=== PATIENT | female | born 1945 | race Caucasian/White ===

== ENCOUNTER → 2016-09-29 | Outpatient (CLI) | payer OTHER, MEDICARE ==
--- NOTE | 2016-09-29 08:36 | US ---
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 Findings: Gallbladder: Multiple subcentimeter gallbladder polyps adherent to the wall without shadowing calculi , with greater than 10 polyps noted. No shadowing calculi, wall thickening, or pericholecystic fluid. Common bile duct is 5 mm in diameter which is normal. Liver: Diffusely increased in echogenicity without definite focal lesions and measures 18 cm in lengt h. Renal: Right kidney measures 11 x 5 x 4 cm without hydronephrosis. Cortical scarring lower pole right kidney. Pancreas: Homogeneous without peripancreatic fluid. Aorta: Atherosclerotic aorta without aneurysm. Impression: 1. Multiple nonshadowing gallbladder polyps for which follow up imaging in 6 months is recommended. 2. No cholelithiasis or biliary ductal dilation. 3. Hepatomegaly and hepatic steatosis without definite focal hepatic lesions or ascites. 4. Cortical scarring lower pole right kidney without hydronephrosis. 5. Atherosclerotic aorta without aneurysm.
== END ==
LOC: FIMAGING 07:22
PROVIDERS: ATTEND Internal Medicine
DX: B18.2 Chronic viral hepatitis C (principal); K82.4 Cholesterolosis of gallbladder; I70.0 Atherosclerosis of aorta

== ENCOUNTER → 2017-05-25 | Outpatient (CLI) | payer OTHER, MEDICARE | LOC: FIMAGING 07:18 | PROVIDERS: ATTEND Internal Medicine | DX: K82.4 Cholesterolosis of gallbladder (principal) ==

== ENCOUNTER → 2017-12-03 | Outpatient (CLI) | payer OTHER, MEDICARE | LOC: FIMAGING 10:57 | PROVIDERS: ATTEND Orthopaedic Surgery | DX: Z01.818 Encounter for other preprocedural examination (principal); M17.12 Unilateral primary osteoarthritis, left knee ==

== ENCOUNTER → 2017-12-08 | Outpatient (CLI) | payer OTHER, MEDICARE ==
[~2017-12-08] MED LIST: IOPAMIDOL (ISOVUE-300) 100 ML BTL ONE
== END ==
LOC: CIMAGING 14:03
PROVIDERS: ATTEND Orthopaedic Surgery
DX: R19.04 Left lower quadrant abdominal swelling, mass and lump (principal); M51.36 Other intervertebral disc degeneration, lumbar region; M51.37 Other intervertebral disc degeneration, lumbosacral region; I70.0 Atherosclerosis of aorta; I77.89 Other specified disorders of arteries and arterioles
CPT/HCPCS: 72193; Q9967; 82565-PO

== ENCOUNTER 2017-12-16 06:09 | Observation (INO) | payer OTHER, MEDICARE ==
[~2017-12-16 06:09] MED LIST changes: +BUPI/epINEPH/KETOROLAC IU ONE; -IOPAMIDOL (ISOVUE-300) 100 ML BTL ONE; +ROPIVACAINE 0.2% 80 MG, EPINEPHrine 0.2 MG, KETOROLAC TROMETHAMINE 30 MG in SYRINGE 0 ML IU ONE; +TRANEXAMIC ACID 3,000 MG in NS (SYRINGE) 50 ML IRR ONE
[2017-12-16] MEDS ORDERED: FAMOTIDINE 20 MG TAB PO ONE (06:39)
[2017-12-16] MEDS ORDERED: ACETAMINOPHEN 325 MG TAB PO ONE (06:39)
[2017-12-16] MEDS ORDERED: DEXAMETHASONE 4 MG/ML VIAL IVP ONE (06:39)
[2017-12-16] MEDS ORDERED: ceFAZolin 2 GM/SWFI 2 GM/20 ML SYR IVP ONE (06:39)
[2017-12-16] MEDS ORDERED: LIDOCAINE 1% 2 ML INJ ID PRN (06:40)
[2017-12-16] MEDS ORDERED: LR 1,000 ML IV ONE (06:40)
[2017-12-16] MEDS ORDERED: TRANEXAMIC ACID 3,000 MG/50 ML BAG IRR ONE (07:02)
--- NOTE | 2017-12-16 07:11 | PDHPUP ---
History & Physical Update H&P update statement: This history and physical update is based on an assessment of the patient which was completed after admission or registration (within 24 hours), but prior to the surgery/procedure. H&P update: H&P reviewed & patient examined, no change in patient's condition since H&P completed
[2017-12-16] MEDS ORDERED: MIDAZOLAM 2 MG/2 ML VIAL IVP ONE (07:19)
[2017-12-16] MEDS ORDERED: LR 500 ML IV PRN (07:21)
[2017-12-16] MEDS ORDERED: PROMETHAZINE HCL 25 MG/ML INJ IVP PRN ×2 (07:21→09:30)
[2017-12-16] MEDS ORDERED: fentaNYL 100 MCG/2 ML INJ IVP PRN (07:21)
[2017-12-16] MEDS ORDERED: NALOXONE HCL 0.4 MG/ML INJ IVP PRN (07:21)
[2017-12-16] MEDS ORDERED: ACETAMINOPHEN 500 MG TAB PO PRN (07:21)
[2017-12-16] MEDS ORDERED: ONDANSETRON 4 MG/2 ML VIAL IVP PRN ×2 (07:21→09:30)
[2017-12-16] MEDS ORDERED: oxyCODONE IR 5 MG TAB PO PRN (07:21)
--- NOTE | 2017-12-16 07:21 | PDANEPAE ---
ANE Past Medical History - Cardiovascular History Hx Hypertension: No Hx Arrhythmias: No Hx Chest Pain: No Hx Coronary Artery / Peripheral Vascular Disease: No Hx CHF / Valvular Disease: No Hx Palpitations: No - Pulmonary History Hx COPD: No Hx Asthma/Reactive Airway Disease: No Hx Recent Upper Respiratory Infection: No Hx Oxygen in Use at Home: No Hx Sleep Apnea: Yes Sleep Apnea Screening Result - Last Documented: Positive Pulmonary History Comment: SHIVAM uses C-PAP - Neurologic History Hx Cerebrovascular Accident: No Hx Seizures: No Hx Dementia: No - Endocrine History Hx Diabetes: No - Renal History Hx Renal Disorders: No - Liver History Hx Hepatic Disorders: No - Neurological & Psychiatric Hx Hx Neurological and Psychiatric Disorders: No - Cancer History Hx Cancer: No - Congenital Disorder History Hx Congenital Disorders: No - GI History Hx Gastrointestinal Disorders: No - Other Health History Other Health History: none - Chronic Pain History Chronic Pain: Yes (right knee) - Surgical History Prior Surgeries: X PLANTED BREAST IMPLANTS. BILAT CATARACT SX ANE Review of Systems Review of Systems: - Exercise capacity METS (RN): 4 METS ANE Patient History - Allergies Allergies/Adverse Reactions: No Known Allergies Allergy (Verified 12/04/17 16:07) - Home Medications Home Medications: Ascorbic Acid [Vitamin C 500 mg (*)] 500 mg PO DAILY 12/01/17 [Last Taken Unknown] Cholecalciferol Vit D3 [Vitamin D3 (*)] 1,000 units PO DAILY 12/01/17 [Last Taken Unknown] Herbals/Supplements -Info Only 1 ea PO DAILY 12/01/17 [Last Taken Unknown] Levothyroxine [Synthroid 50 mcg (*)] 50 mcg PO DAILY06 12/01/17 [Last Taken Unknown] Pregabalin [Lyrica 150mg (*)] 150 mg PO BID 12/01/17 [Last Taken Unknown] SUMAtriptan [Imitrex 50 MG (*)] 100 mg PO DAILY PRN 12/01/17 [Last Taken Unknown ] Zolpidem Tartrate [Ambien 5MG (*)] 5 mg PO HS PRN 12/01/17 [Last Taken Unknown] celeCOXIB [Celebrex (*)] 200 mg PO BID PRN 12/01/17 [Last Taken Unknown] traMADol [Ultram 50 mg (*)] 50 mg PO DAILY PRN 12/01/17 [Last Taken Unknown] - Anes Hx Anes Hx: no prior problems - Smoking Hx Smoking Status: Never smoked - Family Anes Hx Family Hx Anesthesia Complications: NONE ANE Labs/Vital Signs - Vital Signs Height: 162.56 cm Weight: 65.771 kg ANE Physical Exam - Airway Neck exam: FROM Mallampati Score: Class 2 Mouth exam: normal dental/mouth exam - Pulmonary Pulmonary: no respiratory distress, no rales or rhonchi, clear to auscultation - Cardiovascular Cardiovascular: regular rate and rhythym, no murmur, rub, or gallop - ASA Status ASA Status: II ANE Anesthesia Plan Anesthesia Plan: spinal Regional Anesthesia: adductor canal FNB
[2017-12-16] MEDS ORDERED: LIDOCAINE 2% 5 ML SDV ONE (07:29)
[2017-12-16] MEDS ORDERED: BUPIVACAINE/EPI 0.5% 30 ML SDV ONE (07:29)
[2017-12-16] MEDS ORDERED: fentaNYL 100 MCG/2 ML INJ ONE ×2 (07:40→10:26)
[2017-12-16] MEDS ORDERED: PROPOFOL 200 MG/20 ML VIAL ONE (07:41)
[2017-12-16] MEDS ORDERED: DEXAMETHASONE 4 MG/ML VIAL ONE ×2 (07:43)
[2017-12-16] MEDS ORDERED: MAGNESIUM HYDROXIDE 30 ML UDCUP PO PRN (09:30)
[2017-12-16] MEDS ORDERED: CYCLOBENZAPRINE 10 MG TAB PO PRN (09:30)
[2017-12-16] MEDS ORDERED: PROMETHAZINE HCL 25 MG SUPPR PR PRN (09:30)
[2017-12-16] MEDS ORDERED: METOCLOPRAMIDE 10 MG/2 ML VIAL IVP PRN (09:30)
[2017-12-16] MEDS ORDERED: TEMAZEPAM 15 MG CAP PO PRN (09:30)
[2017-12-16] MEDS ORDERED: LACTULOSE 20 GM/30 ML UDCUP PO PRN (09:30)
[2017-12-16] MEDS ORDERED: LR 1,000 ML IV SCH (09:30)
[2017-12-16] MEDS ORDERED: BISACODYL 10 MG SUPP PR PRN (09:30)
[2017-12-16] MEDS ORDERED: POLYETHYLENE GLYCOL 3350 17 GM PKT PO PRN (09:30)
[2017-12-16] MEDS ORDERED: ONDANSETRON DISINTEGRATING 4 MG TAB PO PRN (09:30)
[2017-12-16] MEDS ORDERED: diphenhydrAMINE 25 MG CAP PO PRN (09:30)
[2017-12-16] MEDS ORDERED: DIPHENOXYLATE/ATROPINE LOMOTIL 1 TAB PO PRN (09:30)
[2017-12-16] MEDS ORDERED: SUMAtriptan 50 MG TAB PO PRN (09:31)
[2017-12-16] MEDS ORDERED: traMADol 50 MG TAB PO PRN (09:31)
--- NOTE | 2017-12-16 09:31 | POSTOPPROG ---
Post Op Note Date of Operation: 12/16/17 Surgeon: Gentry Khan Snagger: mane khan Anesthesiologist: dr. zazueta Anesthesia: Spinal, Other (Specify) (adductor canal block) Pre-op Diagnosis: left knee OA and instability Post-op Diagnosis: same Indication: left knee pain and instability Procedure: L TKA robot assisted Findings: severe knee OA and instability Inf/Abcess present in the surg proc area at time of surgery?: No EBL: 50-100
--- NOTE | 2017-12-16 10:00 | POSTANESTH ---
Post Anesthetic Evaluation Cardiovascular Status: Normal, Stable, Similar to Pre-Op Cond Respiratory Status: Normal, Stable, Similar to Pre-op Cond. Level of Consciousness/Mental Status: Can Participate in Eval, Alert and Oriented Pain Control: Adequate, Prn Tx Ordered Nausea/Vomiting Control: Adequate, Prn Tx Ordered Complications Possibly Related to Anesthesia: None Noted (Adductor canal nerve block performed in PACU.)
[2017-12-16] MEDS: oxyCODONE IR 5 MG TAB PO PRN ×3 (12:37→23:24)
[2017-12-16] MEDS: ACETAMINOPHEN 325 MG TAB PO SCH ×3 (13:20→23:17)
[2017-12-16] MEDS: ceFAZolin 2 GM/SWFI 2 GM/20 ML SYR IVP SCH ×2 (13:20→23:18)
[2017-12-16] MEDS ORDERED: ceFAZolin 2 GM/DEXTROSE 100 ML IV SCH (14:00)
[2017-12-16] MEDS: SENNOSIDES/DOCUSATE SODIUM TAB PO SCH (20:34)
[2017-12-16] MEDS: ASPIRIN 81 MG CHEWABLE TAB PO SCH (20:34)
[2017-12-16] MEDS: PREGABALIN 150 MG CAP PO SCH (20:34)
[2017-12-16] MEDS: FAMOTIDINE 20 MG TAB PO SCH (20:35)
--- NOTE | 2017-12-17 02:33 | GOP ---
[f rep st] OPERATIVE REPORT DATE OF OPERATION: 12/16/2017 SURGEON: Massimo Stephens MD [facility] FINDER: Tricia Stephens PA-C ANESTHESIA: Spinal. PREOPERATIVE DIAGNOSIS: Left knee osteoarthritis. POSTOPERATIVE DIAGNOSIS: Left knee osteoarthritis. PROCEDURE PERFORMED: Left total knee arthroplasty with computer navigation, robotic assist. FINDINGS: Severe tricompartmental osteoarthritis. ESTIMATED BLOOD LOSS: 30 cc. INDICATIONS: The patient is a 72-year-old female with severe and progressive pain and deformity of the left knee unresponsive to conservative care. The risks and benefits of surgical intervention were explained in detail. DESCRIPTION OF PROCEDURE: The patient was brought to the operative room and placed on the table in the supine position. Spinal anesthesia was induced without difficulty. A pneumatic tourniquet was applied about the left proximal thigh, and the leg was prepped and draped in a sterile fashion. The leg baker was applied. After exsanguination by elevation the tourniquet was inflated to 250 mmHg. Incision was made anterior medial from the tibial tuberosity to a point 2 cm proximal to the superior pole of the patella. Medial parapatellar arthrotomy was carried out from the superior pole of the patella and posteriorly in line with the fibers of the Type II VMO. The medial collateral ligament was elevated and the infrapatellar fat pad was resected. The patella was everted and the articular surface was excised. A 32 mm patellar button was placed. Attention was turned first to the distal aspect of the femur. After exposure of the femur, 2 half pins were placed for fixation of the femoral array. In a similar fashion, 2 pins were placed anteromedial on the tibia for fixation of the tibial array. External land marking and registration of the hip center was performed without difficulty. Internal femoral and tibial registration was carried out without difficulty and the femoral and tibial checkpoints were placed and verified for accuracy. Attention was turned to the femur. The foot print for the size 4 femoral component was cut with the saw using the [employer] robotic system and verified for accuracy against the CT based plan. In a similar fashion, the saw was used to cut the footprint for the size 3 tibial component using the [employer] system and verified for accuracy against the CT based plan. The tibial articular surface was excised without difficulty, followed by the intercondylar box cut. The knee was extended and the remnants of the medial and lateral meniscus were excised. The posterior capsule was injected with ropivacaine, epinephrine and Toradol. A size 3 tibial tray was positioned. Trial reduction was then carried out. There was excellent range of motion, alignment, and stability using the 3 x 9 mm polyethylene. All trials were then removed. The joint was thoroughly irrigated and carefully dried. The press-fit components were implanted. The permanent 9 mm polyethylene was placed without difficulty. The tourniquet was deflated and all bleeders were coagulated. The wound was thoroughly irrigated and closed using interrupted sutures of 2-0 Vicryl for the joint capsule. The subcu was closed with 3-0 Vicryl and the skin with 4-0 Monocryl. Dermabond and Steri-Strips were applied followed by a compressive dressing. The patient was then moved from the operating room to the recovery room in good condition, having tolerated the procedure well. /[id number]/MODL MTDD
[2017-12-17] MEDS: ACETAMINOPHEN 325 MG TAB PO SCH (04:49)
[2017-12-17] MEDS: oxyCODONE IR 5 MG TAB PO PRN ×3 (04:50→10:34)
[2017-12-17] MEDS ORDERED: LEVOTHYROXINE 50 MCG TAB PO SCH (06:00)
[2017-12-17] MEDS: PREGABALIN 150 MG CAP PO SCH (08:22)
[2017-12-17] MEDS: SENNOSIDES/DOCUSATE SODIUM TAB PO SCH (08:22)
[2017-12-17] MEDS: ASPIRIN 81 MG CHEWABLE TAB PO SCH (08:22)
[2017-12-17] MEDS: FAMOTIDINE 20 MG TAB PO SCH (08:22)
[2017-12-17 08:31] VITALS: BP 122/66
--- NOTE | 2017-12-17 09:57 | SOAPPROG ---
SOAP Progress Note Assessment/Plan: Assessment: Patient is doing well POD 1 s/p L TKA Pain management: pain is well controlled on oral pain meds. VTE ppx: recommend aspirin 81 mg BID for 4 weeks, cont CECILIA and SCDs D/c planning: d/c to home today pending release from PT Plan: 12/17/17 09:56 12/17/17 09:57 Subjective: patient is doing well, denies SOB, chest pain and N/V. Objective: Vital Signs Temp Pulse Resp BP Pulse Ox 36.4 C 74 16 122/66 H 96 12/17/17 08:00 12/17/17 08:00 12/17/17 08:00 12/17/17 08:00 12/17/17 08:00 Laboratory Results 12/17/17 04:47 12/16/17 12/17/17 12/18/17 05:59 05:59 05:59 Intake Total 1715 Output Total 1670 Balance 45 LLE: incision dressing is clean and dry, NVI, +pf/df ICD10 Worksheet Patient Problems: Problems Problem Status Onset Primary localized osteoarthritis of left knee Acute
== END 2017-12-17 11:03 | disposition home or self-care (01) ==
LOC: F3N 06:09 → INTOOBSV 06:09 → F3N 12:49
PROVIDERS: ADMIT Orthopaedic Surgery; ATTEND Orthopaedic Surgery
PROC: 8E0YXBZ Computer Assisted Procedure of Lower Extremity (ICD-10-PCS; principal; 2017-12-16 08:15)
PROC: 0SRD0JZ Replacement of Left Knee Joint with Synthetic Substitute, Open Approach (ICD-10-PCS; principal; 2017-12-16 08:15)
DX: M17.12 Unilateral primary osteoarthritis, left knee (principal); E03.9 Hypothyroidism, unspecified; G47.33 Obstructive sleep apnea (adult) (pediatric); M79.7 Fibromyalgia; G43.909 Migraine, unspecified, not intractable, without status migrainosus
CPT/HCPCS: 20985; 27447; 73560; 88311; 97110; 97116; 97161; 97165; 97530; C1776; G8978; G8979; G8980; G8987; G8988; J0171; J0690; J1100; J1885; J2250; J2704; J3010

== ENCOUNTER 2017-12-23 18:21 | Inpatient (IN) | payer OTHER, MEDICARE ==
--- NOTE | 2017-12-23 19:00 | EDPHY ---
H & P Smoking Status: Never smoked Time Seen by Provider: 12/23/17 18:37 HPI/ROS: Chief complaint. Abdominal pain HPI. 72-year-old female with abdominal pain and distension. 1 week ago she had a knee replacement. She has been using oxycodone. 3 days ago she had some nausea vomiting. Then she has had abdominal distention and constipation. She has been using milk of magnesia and MiraLax. She had no bowel movement for 6 days and then had a small bowel movement 2 days ago and then none since. She has continued to be nauseated. No fever. Pain is diffuse in the abdomen and crampy. It is distended. She has had a previous appendectomy ROS Constitutional. no fever/chills, no weakness Eyes. no problems with vision ENT. no sore throat, no nasal drainage Cardiovascular. no chest pain Respiratory. no shortness of breath, no cough Abdominal. Abdominal pain and distension and nausea vomiting and constipation . no problems urinating MS. no calf pain/swelling, no neck/back pain, no joint pain Skin. no rash Lymph. no swollen glands Neuro. no headache, no dizziness, no difficulty walking or with speech (Nader Kaplan S) Past Medical/Surgical History: Fibromyalgia, knee replacement, hypothyroid, appendectomy (Nader Kaplan) Social History: , nonsmoker, no alcohol (Nader Kaplan) Physical Exam: General Appearance: Alert pleasant well-developed female mild distress vital signs are stable Eyes: Pupils equal and round no pallor or injection. ENT, Mouth: Mucous membranes are moist. Respiratory: There are no retractions, lungs are clear to auscultation. Cardiovascular: Regular rate and rhythm. Gastrointestinal: Abdomen is soft though distended. Diffusely tender. No masses. Decreased bowel sounds. Rectum is empty of stool. Neurological: Awake and alert, sensory and motor exams grossly normal. Skin: Warm and dry, no rashes. Musculoskeletal: Neck is supple nontender. Extremities symmetrical, full range of motion. Psychiatric: Patient is oriented X 3, there is no agitation. (Nader Kaplan S) Constitutional: Initial Vital Signs Temperature (C) 36.7 C 12/23/17 18:24 Heart Rate 69 12/23/17 18:24 Respiratory Rate 16 12/23/17 18:24 Blood Pressure 120/91 H 12/23/17 18:24 O2 Sat (%) 95 12/23/17 18:24 O2 Delivery Mode Nasal Cannula O2 (L/minute) 2 Allergies/Adverse Reactions: No Known Allergies Allergy (Verified 12/04/17 16:07) Home Medications: Medication Instructions Recorded Ascorbic Acid [Vitamin C 500 mg 500 mg PO DAILY 12/01/17 (*)] Cholecalciferol Vit D3 [Vitamin D3 1,000 units PO DAILY 12/01/17 (*)] Herbals/Supplements -Info Only 1 ea PO DAILY 12/01/17 Levothyroxine [Synthroid 50 mcg 50 mcg PO DAILY06 12/01/17 (*)] Pregabalin [Lyrica 150mg (*)] 150 mg PO BID 12/01/17 Zolpidem Tartrate [Ambien 5MG (*)] 5 mg PO HS PRN 12/01/17 Aspirin [Aspirin 81mg (*)] 81 mg PO BID tab.chew 12/17/17 Polyethylene Glycol 3350 [Miralax 17 gm PO DAILY PRN pkt 12/17/17 17 gm (*)] celeCOXIB [Celebrex (*)] 200 mg PO DAILY cap 12/17/17 Acetaminophen [Tylenol 325mg (*)] 650 mg PO Q6HRS PRN 12/24/17 Ondansetron Odt [Zofran Odt 4 mg 4 mg PO Q6HRS PRN 12/24/17 (*)] Sennosides/Docusate Sodium 1 - 2 tab PO BID PRN 12/24/17 [Senokot-S] Medical Decision Making - Diagnostics Imaging Results: Upright KUB shows multiple air-fluid levels suggestive of small-bowel obstruction or ileus. (Nader Kaplan) Procedures: IV normal saline. Morphine for pain. Zofran for nausea (Nader Kaplan) ED Course/Re-evaluation: 2199: Patient signed over to me at 10:00 p.m. Shift change. Follow-up CT scan. CT scan abdomen pelvis with IV contrast called to me by Dr. Rocio Amos. He reports that most likely she has a gastroenteritis colitis. No evidence of bowel obstruction. There is small bowel that is fluid-filled throughout the abdomen all the way down to the colon. No evidence of obstruction. Will go and re-evaluate the patient. 2245: I did go re-evaluate the patient she is feeling better. She would like to try to have a bowel movement. Had a long discussion with her and her at bedside. I did recommend hospital admission this evening for observation for abdominal pain and what appears to be on a CT scan enterocolitis. She has agreed for this. 2303: Spoke with the hospitalist service they agree to admit this patient. Patient agrees to be admitted for abdominal pain abdominal bloating most likely enterocolitis. No evidence SBO on exam. Abdomen remained soft at this time. ( Rg Burroughs) Differential Diagnosis: Initially I thought constipation was the likely diagnosis. However the patient had multiple air-fluid levels on upright KUB. It was suggestive of small-bowel obstruction. I have considered small-bowel obstruction, ileus. (Nader Kaplan) Care Turn Over: Care to Dr. Burroughs at 10:00 p.m. (Nader Kaplan) - Data Points Laboratory Results: Laboratory Results 12/23/17 20:34 12/23/17 20:34 Medications Given: Aspirin (Aspirin) 81 mg PO BID TEO Stop: 06/22/18 09:44 Last Admin: 12/24/17 10:16 Dose: 81 mg Celecoxib (Celebrex) 200 mg PO DAILY TEO Stop: 06/22/18 09:44 Last Admin: 12/24/17 10:16 Dose: 200 mg Cholecalciferol (Vitamin D) 1,000 units PO DAILY TEO Stop: 06/22/18 09:44 Last Admin: 12/24/17 10:16 Dose: 1,000 units Enoxaparin Sodium (Lovenox) 40 mg SC DAILY TEO Stop: 06/22/18 08:59 Last Admin: 12/24/17 10:16 Dose: 40 mg Lactulose (Cephulac) 20 gm PO TID PRN; Protocol PRN Reason: Constipation Stop: 06/22/18 02:59 Last Admin: 12/24/17 10:16 Dose: 20 gm Levothyroxine Sodium (Synthroid) 50 mcg PO DAILY06 TEO Stop: 06/22/18 09:44 Last Admin: 12/24/17 11:39 Dose: 50 mcg Pregabalin (Lyrica) 150 mg PO BID TEO Stop: 06/22/18 09:44 Last Admin: 12/24/17 10:16 Dose: 150 mg Senna/Docusate Sodium (Senokot-S) 1 - 2 tab PO BID TEO PRN Reason: Protocol Stop: 06/22/18 08:59 Last Admin: 12/24/17 10:15 Dose: 1 tab Discontinued Medications Acetaminophen (Tylenol) 650 mg PO Q4HRS PRN PRN Reason: Pain, Mild/Fever, Can Take PO Stop: 06/21/18 23:29 Last Admin: 12/24/17 10:32 Dose: 650 mg Hydromorphone HCl (Dilaudid) 0.5 mg IVP EDNOW ONE Stop: 12/23/17 22:22 Last Admin: 12/23/17 22:39 Dose: 0.5 mg Sodium Chloride (Ns) 1,000 mls @ 0 mls/hr IV EDNOW ONE; Wide Open PRN Reason: Protocol Stop: 12/23/17 20:10 Last Admin: 12/23/17 20:48 Dose: 1,000 mls Sodium Chloride (Ns) 1,000 mls @ 75 mls/hr IV CONT TEO Stop: 06/21/18 23:29 Last Admin: 12/24/17 01:20 Dose: 1,000 mls Morphine Sulfate (Morphine) 6 mg IVP EDNOW ONE Stop: 12/23/17 20:10 Last Admin: 12/23/17 20:50 Dose: 6 mg Ondansetron HCl (Zofran Odt) 4 mg PO EDNOW ONE Stop: 12/23/17 19:27 Last Admin: 12/23/17 19:33 Dose: 4 mg Ondansetron HCl (Zofran) 4 mg IVP EDNOW ONE Stop: 12/23/17 20:10 Last Admin: 12/23/17 20:50 Dose: 4 mg Polyethylene Glycol/Electrolytes (Gavilyte - G) 4,000 ml PO ONCE ONE Stop: 12/23/17 19:27 Last Admin: 12/23/17 22:33 Dose: Not Given Zolpidem Tartrate (Ambien) 5 mg PO HS PRN PRN Reason: Sleep/Insomnia Stop: 06/22/18 01:59 Last Admin: 12/24/17 02:20 Dose: 5 mg Departure - Departure Disposition: [facility] Acute Clinical Impression: Constipation
[2017-12-23] MEDS ORDERED: PEG 3350/NA SULF,BICARB,CL/KCL (GAVILYTE-G) 4000 ML BTL PO ONE (19:26)
[2017-12-23] MEDS ORDERED: ONDANSETRON DISINTEGRATING 4 MG TAB PO ONE (19:26)
[2017-12-23] MEDS ORDERED: NS 1,000 ML IV ONE (20:09)
[2017-12-23] MEDS ORDERED: ONDANSETRON 4 MG/2 ML VIAL IVP ONE (20:09)
[2017-12-23] MEDS ORDERED: IOPAMIDOL (ISOVUE-300) 100 ML BTL ONE (20:19)
[2017-12-23 20:45] LABS: PLATELET COUNT 341 10^3/uL (150-400)
[2017-12-23] MEDS ORDERED: HYDROmorphONE/DILAUDID 2 MG/ML INJ IVP ONE (22:21)
[2017-12-23] MEDS ORDERED: ONDANSETRON 4 MG/2 ML VIAL IVP PRN (23:30)
[2017-12-23] MEDS ORDERED: NS 1,000 ML IV SCH (23:30)
[2017-12-23] MEDS ORDERED: ACETAMINOPHEN 325 MG TAB PO PRN (23:30)
[2017-12-24] MEDS ORDERED: ZOLPIDEM TARTRATE 5 MG TAB PO PRN (02:00)
[2017-12-24] MEDS ORDERED: MAGNESIUM HYDROXIDE 30 ML UDCUP PO PRN (03:00)
[2017-12-24] MEDS ORDERED: POLYETHYLENE GLYCOL 3350 17 GM PKT PO PRN ×2 (03:00→09:44)
[2017-12-24] MEDS ORDERED: LACTULOSE 20 GM/30 ML UDCUP PO PRN (03:00)
[2017-12-24] MEDS ORDERED: BISACODYL 10 MG SUPP PR PRN (03:00)
--- NOTE | 2017-12-24 04:34 | GHP ---
[f rep st] HISTORY AND PHYSICAL DATE OF ADMISSION: 12/23/2017 SOURCE: Patient is able to provide history, appears reliable. Her EMR was also reviewed, and case d iscussed with ED provider. CHIEF COMPLAINT: Abdominal pain and distention. HISTORY OF PRESENT ILLNESS: This is a pleasant, 72-year-old female with past medical history signifi cant for fibromyalgia, hypothyroidism, migraine headaches, SHIVAM, osteoarthritis with recently status p ost left TKA approximately 1 week ago. Patient was discharged with narcotic therapy for pain control , and she had developed some constipation. Patient reports the last bowel movement was approximately 2 days ago. She had been attempting to utilize dmgk-epm-cmngwor MiraLAX, milk of magnesia to improv e her symptoms, but had not had any bowel movement until she arrived to the floor. She has also note d some nausea with intermittent episode of nonbloody vomiting. Patient reports that since arrival to the floor she has had a few small, watery stools that are without any blood or melena. Patient kade es any fevers, chills. No recent illnesses. No known sick contacts. Patient has been having increa sing diffuse abdominal distention and cramping type pain. No radiation of her pain to her back. No dysuria, hematuria reported. REVIEW OF SYSTEMS: GENERAL: No fevers, chills. SKIN: No new rashes, sores. Patient reports that she has not noticed any increasing erythema at her surgical site. ENT: No congestion, sore throat. EYES: No acute changes in vision or ocular pain. CV: No chest pain, palpitations. RESPIRATORY: No shortness of breath or cough. GI: Patient with nausea, vomiting, abdominal pain, bloating, as no panda above, in HPI. MUSCULOSKELETAL: Left knee pain and arthritis pain. Patient also with history o f fibromyalgia. NEURO: No headache, numbness, tingling, focal deficits. Some limited range of michael on in her knees. PSYCHIATRIC: Patient without any mood changes. Remainder of review of systems neg ative, except as noted above. ALLERGIES: No known drug allergies. HOME MEDICATIONS: Tramadol 50 mg p.o. daily p.r.n., Oxy IR 5-10 mg p.o. q.3 hours p.r.n. for pain, C elebrex 200 mg p.o. daily p.r.n., Ambien 5 mg p.o. at h.s., Senokot-S 1-2 tabs p.o. b.i.d., sumatript an 100 mg p.o. daily p.r.n., Lyrica 150 mg p.o. b.i.d., MiraLAX 17 g p.o. daily p.r.n., levothyroxine 50 mcg p.o. daily, Arnica cream, vitamin D3 1,000 units p.o. daily, aspirin 81 mg p.o. b.i.d., ascor bic acid 500 mg p.o. daily, acetaminophen 650 mg p.o. q.6 hours. PAST MEDICAL HISTORY: Significant for osteoarthritis, fibromyalgia, hypothyroidism, migraine headach es, history of flu, SHIVAM, on CPAP. PAST SURGICAL HISTORY: Significant for left total knee arthroplasty, appendectomy. FAMILY HISTORY: Patient denies any GI problems. No Crohn's or ulcerative colitis. SOCIAL HISTORY: Patient denies any tobacco or drugs. She drinks occasional alcohol, nothing on a da andre basis. Patient is , retired. CODE STATUS: Full. PHYSICAL EXAMINATION: VITALS: Upon arrival to the emergency department, blood pressure 120/91, hear t rate 69, respiratory rate 16, O2 sat 95% on room air with temperature 36.7. Vitals currently: Blo od pressure 138/80, heart rate 58, respiratory rate 16, O2 sat is 100% on CPAP, temperature 36.6. GE NERAL: No acute distress. Very pleasant, fatigued-appearing, adult female. Appears younger than st ated age. Is resting quietly in bed with her nasal CPAP in place. HEAD: Normocephalic, atraumatic. EYES: Extraocular muscles are grossly intact, limited secondary to patient fatigue. No scleral ic terus or conjunctival injection noted. ENT: Mucous membranes appear moist. No oropharyngeal erythe ma. Dentition intact. No nasal discharge. Patient does have a nasal CPAP in place. NECK: Supple. Trachea midline. CV: Slightly bradycardic with regular rhythm. No murmurs, rubs, or gallops appr eciated. RESPIRATORY: Unlabored breathing. Diminished at the bases. Poor inspiratory effort. No wheezes, rales, or rhonchi appreciated. ABDOMEN: Positive bowel sounds. Soft, but full. Patient w ithout any tenderness to palpation on light palpation. Positive bowel sounds. : No suprapubic te nderness to palpation. No Alvarenga catheter in place. MUSCULOSKELETAL: Patient is able to move all he r extremities. Some limited range of motion in the left lower extremity. NEURO: Cranial nerves chelsea ssly intact. No facial drooping. Moves all extremities. Patient awake, alert, oriented x3, but a l ittle somnolent. Thought process, content, and questions are appropriate, however. LABORATORY DATA: WBC 8.05, H and H are 14.3 and 40.5, MCV 87.9, platelet count is 341, no bands. Sodium is 131, potassium is 3.8, chloride is 91, CO2 is 33, anion gap is 7, BUN 16, creatinine 0.8, G FR of greater than 60, glucose 95, calcium is 9.3, lipase 65. IMAGING: X-ray and reports reviewed. KUB with air-fluid level in the stomach and throughout central small bowel loops, potentially representing ileus versus small bowel obstruction. Some air within t he nondistended rectosigmoid colon. No free air noted. Degenerative changes, lumbar spine. Surgica l clips near the inferior ischial pubic ramus. CT abdomen/pelvis with contrast showing lung bases with bibasilar dependent subsegmental atelectatic features, trace pleural fluid, intraluminal fluid within the stomach, small bowel, and throughout the entirety of the large bowel to the rectosigmoid, some mild antral gastric wall thickening, mild smal l bowel wall thickening. No mechanical bowel obstruction or pneumatosis observed. Appendix surgical ly absent. Features suggestive of gastroenteritis or dysmotile syndrome. Degenerative changes in th e thoracic and lumbar spine. ASSESSMENT AND PLAN: This is a pleasant, 72-year-old female 1 week status post left total knee arthr oplasty, on narcotic therapy for pain, who now presents with complaints of abdominal distention, cons tipation, nausea, vomiting. 1. Likely enterocolitis versus some dysmotility issues related to narcotic therapy. Patient has sta rted to have some small, watery stools, and reports some improvement in her distention and abdominal discomfort. Will plan to initiate aggressive bowel regimen in the morning, once patient is more aler t. 2. Abdominal pain is improved. Will try to avoid narcotic therapy at this point, and promote bowel regimen. 3. Atelectasis noted on CT scan. Will obtain incentive spirometer and encourage use. 4. Hyponatremia, likely related to some hypovolemia. Patient's blood pressures are acceptable at th is time. Will give some IV fluid supplementation overnight, as patient still remains quite tired. W ill encourage oral hydration when patient is awake. 5. Status post right total knee arthroplasty. Continue routine postoperative care, and mobilize. 6. Obstructive sleep apnea, on CPAP. Home CPAP in use. 7. Hypothyroidism. Continue patient's replacement. 8. Migraine headache, currently asymptomatic. Sumatriptan p.r.n. 9. Fibromyalgia. Supportive care. 10. Fluid, electrolyte, nutrition. IV fluids overnight. Monitoring electrolytes, replace if needed . Diet advanced as tolerated. 11. Prophylaxis. Sequential compression devices, if tolerated, but patient does have her thromboemb olic-deterrent hose in place. She is reporting some discomfort in her calves related to the sequenti al compression devices. Will encourage mobilization. DISPOSITION: Patient will be admitted to observation status on the medical floor at this time. As h er symptoms are slowly improving, continue with bowel regimen. CODE STATUS: Full. /[id number]/MODL
[2017-12-24 05:24] LABS: PLATELET COUNT 303 10^3/uL (150-400)
[2017-12-24] MEDS ORDERED: SENNOSIDES/DOCUSATE SODIUM TAB PO PRN (09:44)
[2017-12-24] MEDS: SENNOSIDES/DOCUSATE SODIUM TAB PO SCH ×2 (10:15→21:10)
[2017-12-24] MEDS: PREGABALIN 150 MG CAP PO SCH ×2 (10:16→21:10)
[2017-12-24] MEDS: ASPIRIN 81 MG CHEWABLE TAB PO SCH ×2 (10:16→21:10)
[2017-12-24] MEDS: CHOLECALCIFEROL VIT D3 1,000 UNITS TAB PO SCH (10:16)
[2017-12-24] MEDS: ENOXAPARIN 40 MG/0.4 ML SYR SC SCH (10:16)
[2017-12-24] MEDS: LEVOTHYROXINE 50 MCG TAB PO SCH (11:39)
[2017-12-24] MEDS ORDERED: MAGNESIUM CITRATE 300 ML BOTTLE PO ONE (12:44)
--- NOTE | 2017-12-24 13:34 | HOSPPROG ---
Hospitalist Progress Note Assessment/Plan: 72-year-old female presents to the hospital with complaints of abdominal pain. # obstipation Continue aggressive bowel therapy Patient having watery stools Check KUB in the morning Check for C diff, low suspicion # pain Improved Continue nonnarcotic pain medications # nausea Mild # hyponatremia In the setting of dehydration Improved with fluids # disposition Anticipate the patient will discharge in 1 day Continue supportive bowel therapy Reviewed with RN Subjective: Feeling better. Still having some abdominal discomfort. Objective: Vital Signs Temp Pulse Resp BP Pulse Ox 36.7 C 72 16 112/68 95 12/24/17 12:50 12/24/17 12:50 12/24/17 12:50 12/24/17 12:50 12/24/17 12:50 Laboratory Results 12/24/17 04:43 12/23/17 12/24/17 12/25/17 05:59 05:59 05:59 Intake Total 1324 868 Balance 1324 868 - Physical Exam Constitutional: appears nourished, uncomfortable Eyes: PERRL, anicteric sclera Ears, Nose, Mouth, Throat: moist mucous membranes, hearing normal Cardiovascular: No JVD, No edema Respiratory: no respiratory distress, no rales or rhonchi Gastrointestinal: No tenderness, No ascites Skin: warm, normal color Musculoskeletal: pain with ROM, generalized weakness Neurologic: AAOx3 Psychiatric: not anxious, not encephalopathic ICD10 Worksheet Patient Problems: Problems Problem Status Onset Constipation Acute Primary localized osteoarthritis of left knee Acute
--- NOTE | 2017-12-24 15:44 | PDMN ---
Medical Necessity Medical necessity: Change to IP, as of 12/24/17, per [employer]; los >2 mn for ongoing management of obstipation w/abdominal pain & nausea; admit for further workup/ monitoring, aggressive bowel therapy, pain management & therapy; hx SHIVAM on CPAP , osteoarthritis; per progress note & order 12/24/17
[2017-12-24] MEDS: ACETAMINOPHEN 325 MG TAB PO PRN (16:48)
--- NOTE | 2017-12-24 17:36 | ASMTCMCOM ---
CM Note CM Note Notes: Spoke w/RN, anticipate pt will dc home w/support of when medically stable. CM available for any changes. DC Plan: Independent Date Signed: 12/24/2017 05:36 PM Electronically Signed By:Jana Herron RN
[2017-12-24] MEDS: ZOLPIDEM TARTRATE 5 MG TAB PO PRN (21:56)
[2017-12-25] MEDS: LEVOTHYROXINE 50 MCG TAB PO SCH (06:17)
[2017-12-25] MEDS: ACETAMINOPHEN 325 MG TAB PO PRN ×2 (06:20→16:56)
[2017-12-25] MEDS: ASPIRIN 81 MG CHEWABLE TAB PO SCH ×2 (08:22→20:47)
[2017-12-25] MEDS: CHOLECALCIFEROL VIT D3 1,000 UNITS TAB PO SCH (08:22)
[2017-12-25] MEDS: ASCORBIC ACID 500 MG TAB PO SCH (08:23)
[2017-12-25] MEDS: SENNOSIDES/DOCUSATE SODIUM TAB PO SCH ×2 (08:24→20:46)
[2017-12-25] MEDS: PREGABALIN 150 MG CAP PO SCH ×2 (08:49→20:47)
[2017-12-25] MEDS: ENOXAPARIN 40 MG/0.4 ML SYR SC SCH (08:50)
[2017-12-25] MEDS ORDERED: Herbals/Supplements -Info Only PO SCH (09:00)
[2017-12-25] MEDS: ONDANSETRON DISINTEGRATING 4 MG TAB PO PRN ×2 (09:59→16:56)
--- NOTE | 2017-12-25 12:36 | GDS ---
[f rep st] DISCHARGE SUMMARY Discharge canceled. Patient not feeling well enough to be discharged home. DISCHARGE DIAGNOSES: 1. Obstipation. 2. Dysmotility. 3. Abdominal pain. 4. Nausea. 5. Hypernatremia. PHYSICAL EXAM: GENERAL: The patient is alert. VITAL SIGNS: Afebrile at 36.8 , pulse is 71, respiratory rate 16, blood pressure is 143/83. She is saturating 96% on room air. I have seen and evaluated the patient on the day of discharge. HOSPITAL COURSE: The patient is a 72-year-old female who presented to the emergency room with complaints of abdominal pain. She was evaluated and diagnosed with: 1. Obstipation with dysmotility. This is likely secondary to the patient's recent narcotic use and surgical intervention. Her condition has resolved. She is having bowel movements. Her abdominal x-ray shows resolution and appears to be improving. 2. Pain. This is improved. The patient will remain off narcotics. 3. Nausea. This has resolved. 4. Hyponatremia. This is in the setting of dehydration and has resolved with hydration. 5. Disposition. The patient will be discharged home with her independently. There are no pending studies. DISCHARGE MEDICATIONS: Please refer to EMR form. I have not adjusted the patient's previously prescribed home medications to the best of my knowledge. FOLLOWUP: Will be with her primary care physician as well as her orthopedist as previously scheduled. /[id number]/MODL MTDD
--- NOTE | 2017-12-25 12:37 | HOSPPROG ---
Hospitalist Progress Note Assessment/Plan: 72-year-old female presents to the hospital with complaints of abdominal pain. # obstipation/dysmotility resolved kub personally reviewed, no sbo +BM CDiff negative # pain Improved Continue nonnarcotic pain medications # nausea Mild # hyponatremia In the setting of dehydration Improved with fluids # disposition attempted DC today, pt feels unready Anticipate the patient will discharge in 1 day Continue supportive bowel therapy Reviewed with RN Subjective: [place] well this am. Now tired and unable to DC home. Objective: Vital Signs Temp Pulse Resp BP Pulse Ox 36.8 C 71 16 143/83 H 96 12/25/17 07:29 12/25/17 07:29 12/25/17 07:29 12/25/17 07:29 12/25/17 07:29 Laboratory Results 12/24/17 04:43 12/24/17 12/25/17 12/26/17 05:59 05:59 05:59 Intake Total 1324 1618 Balance 1324 1618 - Physical Exam Constitutional: no apparent distress, appears nourished, not in pain Eyes: PERRL, anicteric sclera, EOMI Ears, Nose, Mouth, Throat: moist mucous membranes, hearing normal, ears appear normal Cardiovascular: No JVD, No tachycardia, No edema Respiratory: no respiratory distress, no rales or rhonchi, clear to auscultation Gastrointestinal: normoactive bowel sounds, No tenderness, No ascites, No guarding Skin: warm, normal color, No mottled Musculoskeletal: joint tenderness, pain with ROM, generalized weakness Neurologic: AAOx3 Psychiatric: not anxious, not encephalopathic, thought process linear ICD10 Worksheet Patient Problems: Problems Problem Status Onset Constipation Acute Primary localized osteoarthritis of left knee Acute
[2017-12-25] MEDS: FAMOTIDINE 20 MG TAB PO SCH ×2 (13:00→20:47)
[2017-12-25] MEDS: ZOLPIDEM TARTRATE 5 MG TAB PO PRN (22:55)
[2017-12-26] MEDS: LEVOTHYROXINE 50 MCG TAB PO SCH (05:21)
[2017-12-26 08:14] VITALS: BP 136/71
--- NOTE | 2017-12-26 08:21 | HOSPPROG ---
Hospitalist Progress Note Assessment/Plan: 72-year-old female presents to the hospital with complaints of abdominal pain. Today is my 1st encounter with the patient. Chart reviewed. # obstipation/dysmotility resolved # pain due to recent knee surgery Improved Continue nonnarcotic pain medications # nausea Mild # hyponatremia improved # disposition dc home with f/u with orthopedics Subjective: Patient has no c/o of abdominal discomfort, feeling well, nausea resolved. Objective: Vital Signs Temp Pulse Resp BP Pulse Ox 36.9 C 78 18 136/71 H 95 12/26/17 08:00 12/26/17 08:00 12/26/17 08:00 12/26/17 08:00 12/26/17 08:00 Laboratory Results 12/24/17 04:43 12/25/17 12/26/17 12/27/17 05:59 05:59 05:59 Intake Total 1618 450 Balance 1618 450 - Physical Exam Constitutional: no apparent distress, appears nourished Eyes: PERRL Ears, Nose, Mouth, Throat: hearing normal Cardiovascular: regular rate and rhythym Respiratory: no respiratory distress Gastrointestinal: normoactive bowel sounds, soft, non-tender abdomen Skin: warm, normal color Neurologic: AAOx3 Psychiatric: interacting appropriately ICD10 Worksheet Patient Problems: Problems Problem Status Onset Constipation Acute Primary localized osteoarthritis of left knee Acute
[2017-12-26] MEDS: CHOLECALCIFEROL VIT D3 1,000 UNITS TAB PO SCH (09:05)
[2017-12-26] MEDS: PREGABALIN 150 MG CAP PO SCH (09:05)
[2017-12-26] MEDS: FAMOTIDINE 20 MG TAB PO SCH (09:06)
[2017-12-26] MEDS: ASCORBIC ACID 500 MG TAB PO SCH (09:07)
[2017-12-26] MEDS: ASPIRIN 81 MG CHEWABLE TAB PO SCH (09:07)
[2017-12-26] MEDS: SENNOSIDES/DOCUSATE SODIUM TAB PO SCH (09:08)
[2017-12-26] MEDS: ENOXAPARIN 40 MG/0.4 ML SYR SC SCH (09:09)
--- NOTE | 2017-12-26 09:49 | GDS ---
[f rep st] DISCHARGE SUMMARY DISCHARGE DIAGNOSIS: 1. Obstipation. 2. Abdominal pain. 3. Nausea. 4. Hyponatremia. BRIEF HISTORY: Briefly, the patient is a 72-year-old female who presented to the emergency room with complaints of abdominal pain. She had a CT of the abdomen performed, which showed no evidence of a small-bowel obstruction, but she had dysmotile syndrome with a small volume of free air in the pelvis. In addition, an abdominal x-ray was performed that showed findings suspicious for developing a small bowel obstruction. She was aggressively treated with a bowel protocol. Her symptoms have resolved. Please see the discharge summary done by Fernando Soler on 12/25/2017. CONDITION AT DISCHARGE: Stable. Blood pressure is 136/71, heart rate 78, respiratory rate is 18, O2 saturations on room air 95%, temperature is 36.9 Celsius. MEDICATIONS AT DISCHARGE: Please see the EMR. DISCHARGE INSTRUCTIONS: 1. To stay on stool softeners while she is taking pain medications for her recent knee surgery. 2. To further follow up with her primary care provider. TIME SPENT: Greater than 30 minutes discharging and coordinating the patient's care. /[id number]/MODL and [id number]/MODL [facility] CENTERShona
--- NOTE | 2017-12-26 10:11 | ASMTLACE ---
LACE Length of stay for Answers: 3 days current admission Acuity / Level of Answers: Yes Care: Did the patient have an inpatient admission? Comorbidities - select Answers: Chronic pulmonary disease all that apply Other Notes: Hypothyroidism, SHIVAM, fi bro myalgia # of Emergency department Answers: 1-2 visits in the last 6 months Score: 10 Date Signed: 12/26/2017 10:10 AM Electronically Signed By:Katie Azevedo LCSW
--- NOTE | 2017-12-26 10:12 | ASMTCMCOM ---
CM Note CM Note Notes: Pt. to d/c independently today. Date Signed: 12/26/2017 10:11 AM Electronically Signed By:Katie Azevedo LCSW
[2017-12-26] MEDS: ACETAMINOPHEN 325 MG TAB PO PRN (10:30)
== END 2017-12-26 10:44 | disposition home or self-care (01) | DRG 392 ==
LOC: OBSVTOIN 23:32 → F3E 12-24 01:06
PROVIDERS: ADMIT Family Medicine; ATTEND Family Medicine
DX: K59.03 Drug induced constipation (principal); E87.1 Hypo-osmolality and hyponatremia; K59.8 Other specified functional intestinal disorders; T40.2X5A Adverse effect of other opioids, initial encounter; E03.9 Hypothyroidism, unspecified; G47.33 Obstructive sleep apnea (adult) (pediatric); M79.7 Fibromyalgia; G43.909 Migraine, unspecified, not intractable, without status migrainosus; Z96.652 Presence of left artificial knee joint
CPT/HCPCS: 82947-QW; 96374; 97161-GP; 97164-GP; G8978-GP-CI; G8979-GP-CI; G8980-GP-CI; J1170; J1650; J2270; J2405; Q9967